=== PATIENT | male | born 1975 | race American Indian/Alaskan Native ===

== ENCOUNTER 2022-07-28 19:25 | Inpatient (IN) | payer OTHER, SELFPAY ==
[2022-07-28 19:31] VITALS: BP 156/98; PULSE 74; RESP 18; TEMP 37; O2SAT 98; BMI 28.9
[2022-07-28 19:52] LABS: Appearance Urine Cloudy; Color Urine Yellow; Glucose Urine UA Negative (Negative); Leukocyte Esterase Urine Negative (Negative); Nitrite Urine Negative (Negative); Specific Gravity - Urine 1.015 (1.005-1.025); Urine Blood Negative (Negative); Urine Ketones Negative (Negative); Urine Protein Negative (Neg-Trace)
[2022-07-28 19:57] LABS: MANUAL DIFF FLAG NO
[2022-07-28 20:02] LABS: Basophils Percent Auto 0.4 % (0-2); Eosinophils Absolute Auto 0.2 X10*3/uL (0.0-0.4); Eosinophils Percent Auto 2.2 % (0-4); Hematocrit 41.4 % (42.0-52.0); Hemoglobin 14.2 g/dl (14.0-18.0); Imm Gran Abs Auto 0.02 X10*3/uL (0.00-0.03); Imm Gran Pct Auto 0.2 % (0.0-0.4); Lymphocytes Absolute Auto 2.9 X10*3/uL (1.2-4.9); Lymphocytes Percent Auto 32.2 % (20-40); Mean Corpuscular HGB Conc 34.3 g/dl (31.0-36.0); Mean Corpuscular Hemoglobin 31.1 pg (27.0-33.0); Mean Corpuscular Volume 90.8 fL (80.0-98.0); Mean Platelet Volume 9.3 fL (9.4-12.4); Monocytes Absolute Auto 0.5 X10*3/uL (0.1-1.2); Monocytes Percent Auto 5.4 % (2-11); Neutrophils Absolute Auto 5.3 x10*3/uL (2.0-8.3); Neutrophils Percent Auto 59.6 % (45-73); Platelet Count 219 X10*3/uL (160-400); Red Blood Count 4.56 X10*6/uL (4.60-5.80); Red Cell Distribution Width 13.1 % (11.0-16.0)
[2022-07-28 20:04] LABS: Amphetamine Screen Urine Not Detected (Not Detect); Barbiturates, Urine Not Detected (Not Detect); Benzodiazepines Screen Urine Not Detected (Not Detect); Cannabinoid Screen Urine POSITIVE (Not Detect); Cocaine Screen Urine Not Detected (Not Detect); Fentanyl, urine Not Detected (Not Detect); Opiate Screen Urine Not Detected (Not Detect); Phencyclidine Screen Urine Not Detected (Not Detect)
[2022-07-28 20:05] LABS: COVID-19 Test Negative (Negative); IDNOW Serial# BCCEAD1C
[2022-07-28 20:22] LABS: Alanine Aminotransferase 40 U/L (0-40); Albumin Level 4.4 g/dL (3.5-5.0); Alkaline Phosphatase 71 U/L (39-117); Anion Gap 14 (12-20); Aspartate Amino Transferase 20 U/L (5-37); Bilirubin Total 0.4 mg/dL (0.0-1.0); Blood Urea Nitrogen 10 mg/dL (9-16); Calcium 9.4 mg/dL (8.4-10.2); Carbon Dioxide 25 mmol/L (22-29); Chloride 106 mmol/L (96-108); Creatinine Clr Calc Pharmacy 89.9; Estimated Glomerular Filt Rate > 60; Ethanol < 10 mg/dL; Glucose Random 107 mg/dL (60-115); Potassium 3.8 mmol/L (3.3-5.1); Sodium 141 mmol/L (135-145); Total Protein 6.9 g/dL (6.5-8.0)
--- NOTE | 2022-07-28 22:39 | ED.PSYCH ---
HPI - Psych General Chief Complaint: Psychiatric Symptoms Stated Complaint: SI Section 12 Time Seen by Provider: 07/28/22 19:51 Source: patient Mode of arrival: ambulatory Limitations: no limitations History of Present Illness HPI Narrative: 46-year-old male DID, PTSD, anxiety, depresison presents to the emergency via ambulance on a Section 12 from a behavioral health clinic or suicidal ideation without particular plan patient has been feeling this way for few days. Reports increasing life stressors as well as anxiety, depression. Patient tells me he misses his family. He reports he is currently enrolled in a partial hospitalization program on [facility] in [place] through [facility]. Reports this just is in enough Patient denies auditory, visual and tactile hallucinations. Denies drugs, alcohol tobacco. No medical complaints at this time. Related Data Home Medications Medication Instructions Recorded Confirmed buspirone 7.5 mg tablet 7.5 mg PO BID 07/28/22 07/28/22 duloxetine 30 mg capsule,delayed 30 mg PO QAM 07/28/22 07/28/22 release esomeprazole magnesium 20 mg 20 mg PO DAILY 07/28/22 07/28/22 capsule,delayed release prazosin 1 mg capsule 1 mg PO BEDTIME nightmares 07/28/22 07/28/22 Allergies Allergy/AdvReac Type Severity Reaction Status Date / Time acetaminophen [From NyQuil] Allergy Nausea and Verified 07/28/22 19:37 Vomiting dextromethorphan Allergy Nausea and Verified 07/28/22 19:37 [From NyQuil] Vomiting doxylamine [From NyQuil] Allergy Nausea and Verified 07/28/22 19:37 Vomiting Penicillins Allergy Difficulty Verified 07/28/22 19:37 Breathing pseudoephedrine [From NyQuil] Allergy Nausea and Verified 07/28/22 19:37 Vomiting Review of Systems Review of Systems: Constitutional : No Weight loss, No Fever, No Chills, No Fatigue, No Malaise ENT/Mouth : No sore throat, No Rhinorrhea Eyes: No Eye Pain, No Swelling, No Redness Cardiovascular : No Chest Pain, No SOB, No Dyspnea on Exertion, No Orthopnea, No Edema, No Palpitations Respiratory : No Cough, No Sputum, No Wheezing Gastrointestinal : No Nausea, No Vomiting, No Diarrhea, No Constipation, No abdominal Pain, No Hematochezia, No Melena Genitourinary : No Dysuria, No Urinary Frequency, No Hematuria, Musculoskeletal : No joint pain, No Myalgias, No Joint Swelling Skin : No Skin Lesions, No rash Neuro : No Weakness, No Numbness, No Dizziness, No Headache Psych : + Anxiety/Panic, + Depression, + SI and NO HI All other systems reviewed and are negative Yes all other systems are reviewed and are negative [facility] Past Medical History Attestation statement: The following information was validated with the patient. Source: old records reviewed and nursing notes reviewed Social History Social History Advance Directives: No Advance Directives Information Provided: Yes Physical Exam Vital Signs: Vital Signs: Last Vital Signs Temp 98.6 F 07/28/22 19:31 Pulse 74 07/28/22 19:31 Resp 18 07/28/22 19:31 BP 156/98 H 07/28/22 19:31 Pulse Ox 98 07/28/22 19:31 O2 Del Method Room Air 07/28/22 19:31 BMI result Body Mass Index 28.9 vss Appearance: Alert.? Oriented X3.? No acute distress.? Head: Normocephalic, atraumatic, no step-offs or deformities Eyes: Pupils equal, round and reactive to light.? CVS: Normal heart rate and rhythm.? Pulses normal.? Respiratory: No respiratory distress.? Breath sounds normal.? Abdomen: Soft and nontender.? Skin: Skin warm and dry.? Normal skin color.? Normal skin turgor.? Extremities: No lower extremity edema.? No calf ttp. 5/5 strength to bilateral upper and lower extremities Neuro: Oriented X 3.? No motor deficit.? No sensory deficit. CN 2-12 intact Course Reevaluation(s) Reevaluation #1: CBC with no acute findings. Chemistry without electrolyte abnormalities requiring intervention. Urine clean. Urine toxicology positive for marijuana. Negative ethanol. COVID negative. At this time patient will be placed into observation to allow more time for inpatient psychiatric placement At time observation was started patient common cooperative no acute distress will continue to monitor. Time: 22:42 Medical Decision Making Medical Decision Making [facility] Narrative: 2229 46-year-old male presents with suicidal ideation with no particular plan. Reports increased anxiety and depression due to increasing life stressors. Physical exam benign. Likely anxiety and depression. Unlikely metabolic disturbances Plan medical clearance evaluation by behavioral health team Differential Diagnosis Differential Diagnoses: The differential diagnosis associated with the presentation includes Likely anxiety and depression. Unlikely metabolic disturbances Admission/Observation Consideration of admission/observation: Escalation of care including admission/observation considered Inpatient psychiatric admission Consult Healthcare Provider Management of the patient was discussed with: Behavioral Health Provider Lab Data MDM Lab Attestation statement: I reviewed the patient's lab results. 07/28/22 19:48 07/28/22 19:48 Labs: Lab Results 07/28/22 07/28/22 07/28/22 Range/Units 19:42 19:42 19:42 WBC (4.8-10.8) X10*3/uL RBC (4.60-5.80) X10*6/uL Hgb (14.0-18.0) g/dl Hct (42.0-52.0) % MCV (80.0-98.0) fL MCH (27.0-33.0) pg MCHC (31.0-36.0) g/dl RDW (11.0-16.0) % Plt Count (160-400) X10*3/uL MPV (9.4-12.4) fL Immature Gran % (Auto) (0.0-0.4) % Neut % (Auto) (45-73) % Lymph % (Auto) (20-40) % Valley % (Auto) (2-11) % Eos % (Auto) (0-4) % Baso % (Auto) (0-2) % Lymph # (Auto) (1.2-4.9) X10*3/uL Valley # (Auto) (0.1-1.2) X10*3/uL Eos # (Auto) (0.0-0.4) X10*3/uL Baso # (Auto) (0.0-0.2) X10*3/uL Abs Immat Gran (auto) (0.00-0.03) X10*3/uL Absolute Neuts (auto) (2.0-8.3) x10*3/uL Absolute Nucleated RBC (0.0-0.012) X10*3/uL Nucleated RBC % (auto) (0.0-0.2) /100WBC Sodium (135-145) mmol/L Potassium (3.3-5.1) mmol/L Chloride (96-108) mmol/L Carbon Dioxide (22-29) mmol/L Anion Gap (12-20) BUN (9-16) mg/dL Creatinine (0.5-1.4) mg/dL Estim Creat Clear Calc Estimated GFR Random Glucose (60-115) mg/dL Calcium (8.4-10.2) mg/dL Total Bilirubin (0.0-1.0) mg/dL AST (5-37) U/L ALT (0-40) U/L Alkaline Phosphatase (39-117) U/L Total Protein (6.5-8.0) g/dL Albumin (3.5-5.0) g/dL Urine Color Yellow Urine Appearance Cloudy Urine pH 8.0 (5.0-9.0) Ur Specific [place] 1.015 (1.005-1.025) Urine Protein Negative (Neg-Trace) mg/dL Urine Glucose (UA) Negative (Negative) mg/dL Urine Ketones Negative (Negative) mg/dL Urine Blood Negative (Negative) Urine Nitrite Negative (Negative) Ur Leukocyte Esterase Negative (Negative) Urine Opiates Screen Not Detected (Not Detect) Urine Fentanyl Screen Not Detected (Not Detect) Ur Barbiturates Screen Not Detected (Not Detect) Ur Phencyclidine Scrn Not Detected (Not Detect) Ur Amphetamines Screen Not Detected (Not Detect) U Benzodiazepines Scrn Not Detected (Not Detect) Urine Cocaine Screen Not Detected (Not Detect) U Marijuana (THC) Screen POSITIVE H (Not Detect) Ethyl Alcohol mg/dL COVID-19 (JAVIER) Negative (Negative) COVID-19 Clin Com See Note 07/28/22 07/28/22 Range/Units 19:48 19:48 WBC 9.0 (4.8-10.8) X10*3/uL RBC 4.56 L (4.60-5.80) X10*6/uL Hgb 14.2 (14.0-18.0) g/dl Hct 41.4 L (42.0-52.0) % MCV 90.8 (80.0-98.0) fL MCH 31.1 (27.0-33.0) pg MCHC 34.3 (31.0-36.0) g/dl RDW 13.1 (11.0-16.0) % Plt Count 219 (160-400) X10*3/uL MPV 9.3 L (9.4-12.4) fL Immature Gran % (Auto) 0.2 (0.0-0.4) % Neut % (Auto) 59.6 (45-73) % Lymph % (Auto) 32.2 (20-40) % Valley % (Auto) 5.4 (2-11) % Eos % (Auto) 2.2 (0-4) % Baso % (Auto) 0.4 (0-2) % Lymph # (Auto) 2.9 (1.2-4.9) X10*3/uL Valley # (Auto) 0.5 (0.1-1.2) X10*3/uL Eos # (Auto) 0.2 (0.0-0.4) X10*3/uL Baso # (Auto) 0.0 (0.0-0.2) X10*3/uL Abs Immat Gran (auto) 0.02 (0.00-0.03) X10*3/uL Absolute Neuts (auto) 5.3 (2.0-8.3) x10*3/uL Absolute Nucleated RBC 0.000 (0.0-0.012) X10*3/uL Nucleated RBC % (auto) 0.0 (0.0-0.2) /100WBC Sodium 141 (135-145) mmol/L Potassium 3.8 (3.3-5.1) mmol/L Chloride 106 (96-108) mmol/L Carbon Dioxide 25 (22-29) mmol/L Anion Gap 14 (12-20) BUN 10 (9-16) mg/dL Creatinine 1.12 (0.5-1.4) mg/dL Estim Creat Clear Calc 89.9 Estimated GFR > 60 Random Glucose 107 (60-115) mg/dL Calcium 9.4 (8.4-10.2) mg/dL Total Bilirubin 0.4 (0.0-1.0) mg/dL AST 20 (5-37) U/L ALT 40 (0-40) U/L Alkaline Phosphatase 71 (39-117) U/L Total Protein 6.9 (6.5-8.0) g/dL Albumin 4.4 (3.5-5.0) g/dL Urine Color Urine Appearance Urine pH (5.0-9.0) Ur Specific [place] (1.005-1.025) Urine Protein (Neg-Trace) mg/dL Urine Glucose (UA) (Negative) mg/dL Urine Ketones (Negative) mg/dL Urine Blood (Negative) Urine Nitrite (Negative) Ur Leukocyte Esterase (Negative) Urine Opiates Screen (Not Detect) Urine Fentanyl Screen (Not Detect) Ur Barbiturates Screen (Not Detect) Ur Phencyclidine Scrn (Not Detect) Ur Amphetamines Screen (Not Detect) U Benzodiazepines Scrn (Not Detect) Urine Cocaine Screen (Not Detect) U Marijuana (THC) Screen (Not Detect) Ethyl Alcohol < 10 mg/dL COVID-19 (JAVIER) (Negative) COVID-19 Clin Com External Record Review External record reviewed: Inpatient record, Office record, Outpatient record, Prior outpatient labs, Prior outpatient radiology, Primary care record and Outside ED record Core Measures AMI core measures followed: Yes Measure exclusions: not indicated Critical Care Time Critical Care Time Critical Care Time: No Discharge Plan Discharge Clinical Impression: Depression, Acute anxiety, Suicidal ideation Patient Disposition: Still a Patient Prescriptions: No Action prazosin 1 mg capsule 1 mg PO BEDTIME buspirone 7.5 mg tablet 7.5 mg PO BID esomeprazole magnesium 20 mg capsule,delayed release(DR/EC) 20 mg PO DAILY duloxetine 30 mg capsule,delayed release(DR/EC) 30 mg PO QAM
[2022-07-28] MEDS: diphenhydrAMINE HCL 25 MG CAPSULE 50 MG PO (23:01)
[2022-07-29] MEDS: Omeprazole 20 MG CAPSULE.DR PO (05:20)
--- NOTE | 2022-07-29 05:26 | PC.NURSE ---
Patient slept through the night, no distress observed/reported, Benadryl 50 mg po at 2301 with + effect, medication compliant, disposition per [facility] is section 12 inpatient bed search, thought content paranoid, behavior non concerning, VSS, will continue to monitor.
[2022-07-29 06:30] VITALS: BP 143/86; PULSE 77; RESP 17; TEMP 36.8; O2SAT 97
[2022-07-29] MEDS: busPIRone HCl 5 MG TABLET 7.5 MG PO ×2 (08:27→21:19)
[2022-07-29] MEDS: DULoxetine HCl 30 MG CAPSULE.DR PO (08:27)
[2022-07-29 14:20] VITALS: BP 141/85; PULSE 77; RESP 17; TEMP 37.3; O2SAT 98
--- NOTE | 2022-07-29 14:25 | PC.NURSE ---
Nurse to Nurse given to M3 nurse Ashely RN and assistant director of nursing Carlita
[2022-07-29 16:00] VITALS: BP 157/93; PULSE 81; RESP 18; TEMP 36.6; O2SAT 97
[2022-07-29 18:37] VITALS: BMI 28.1
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
[2022-07-29] MEDS: traZODone HCL 50 MG TABLET PO (21:19)
[2022-07-29] MEDS: Prazosin HCL 1 MG CAPSULE PO (21:19)
[2022-07-29 21:20] VITALS: BP 133/97; PULSE 97; RESP 18; TEMP 36.7; O2SAT 98
[2022-07-30 07:00] VITALS: BMI 28.1
[2022-07-30 08:27] VITALS: BP 178/107; PULSE 108; RESP 18; TEMP 36.4; O2SAT 96
[2022-07-30] MEDS: DULoxetine HCl 30 MG CAPSULE.DR PO (08:28)
[2022-07-30] MEDS: busPIRone HCl 5 MG TABLET 7.5 MG PO (08:29)
[2022-07-30] MEDS: Omeprazole 20 MG CAPSULE.DR PO (08:30)
[2022-07-30 09:04] LABS: Estimated Average Glucose 111 mg/dL; Hemoglobin A1C 148.8862 umol/L; Hemoglobin A1c % 5.5 %
[2022-07-30 09:20] LABS: Alanine Aminotransferase 38 U/L (0-40); Albumin Level 4.4 g/dL (3.5-5.0); Alkaline Phosphatase 72 U/L (39-117); Anion Gap 15 (12-20); Aspartate Amino Transferase 19 U/L (5-37); Bilirubin Total 0.4 mg/dL (0.0-1.0); Blood Urea Nitrogen 13 mg/dL (9-16); Calcium 9.3 mg/dL (8.4-10.2); Carbon Dioxide 22 mmol/L (22-29); Chloride 107 mmol/L (96-108); Cholesterol 256 mg/dL; Creatinine Clr Calc Pharmacy 99.5; Estimated Glomerular Filt Rate > 60; Glucose Fasting 113 mg/dL (60-99); HDL Cholesterol 33 mg/dL; LDL Cholesterol Calculated 186 mg/dl; Potassium 4.1 mmol/L (3.3-5.1); Sodium 140 mmol/L (135-145); Total Protein 7.1 g/dL (6.5-8.0); Triglycerides 189 mg/dL
[2022-07-30 09:49] LABS: Folate 10.7 ng/mL (> or = 4.0); Thyroid Stimulating Hormone 0.96 uIU/mL (0.32-4.0); Vitamin B12 725 pg/mL (200-900)
[2022-07-30 16:05] VITALS: BP 140/94; PULSE 100; O2SAT 97
[2022-07-30] MEDS: Prazosin HCL 1 MG CAPSULE PO (16:12)
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
[2022-07-30 18:00] VITALS: BP 153/99; PULSE 97; RESP 18; TEMP 36.7; O2SAT 98
[2022-07-30] MEDS: Prazosin HCL 1 MG CAPSULE 2 MG PO (21:24)
--- NOTE | 2022-07-31 05:55 | PC.NURSE ---
Anatoly was noted to be awake until late in the evening. she was pleasant and cooperative upon approach. no behavioral issues noted however he was noted to be hyper-verbal and grandiose. no symptoms of disassociation noted.
[2022-07-31 08:00] VITALS: BP 139/83; PULSE 89; TEMP 36.7; O2SAT 97
[2022-07-31] MEDS: Omeprazole 20 MG CAPSULE.DR PO (09:34)
[2022-07-31] MEDS: DULoxetine HCl 30 MG CAPSULE.DR PO (09:35)
[2022-07-31] MEDS: Prazosin HCL 1 MG CAPSULE PO ×2 (09:35→15:18)
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
[2022-07-31 15:00] VITALS: BP 147/77; PULSE 97; RESP 18; TEMP 36.6; O2SAT 98
== END 2022-07-31 18:06 | disposition home or self-care (01) | DRG 754 ==
LOC: HO.ED 22:50 → HO.PADLT16 07-29 15:24
PROVIDERS: Social Worker; Student in an Organized Health Care Education/Training Program; Admitting Provider Psychiatry & Neurology Psychiatry; Emergency Provider Internal Medicine; Visit Provider Psychiatry & Neurology Psychiatry
DX: F32.A Depression, unspecified (principal); R45.851 Suicidal ideations; F43.12 Post-traumatic stress disorder, chronic; Z20.822 Contact with and (suspected) exposure to COVID-19; Z79.899 Other long term (current) drug therapy; Z87.891 Personal history of nicotine dependence; Z62.810 Personal history of physical and sexual abuse in childhood; Z88.0 Allergy status to penicillin; Z88.6 Allergy status to analgesic agent; Z88.8 Allergy status to other drugs, medicaments and biological substances
CPT/HCPCS: 36415; 80053; 80061; 80307; 81003; 82077; 82607; 82746; 83036; 84443; 85025; 87635; 99285; S9485

== ENCOUNTER 2022-09-15 13:00 | Outpatient (RCR) | payer OTHER, SELFPAY ==
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
[2022-08-27 12:09] VITALS: BP 138/84; PULSE 68; TEMP 37.1
[2022-08-27 12:20] VITALS: BMI 30.2
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
--- NOTE | 2022-08-28 14:19 | HO.PHP ---
The clients case was reviewed and opened in treatment team.
--- NOTE | 2022-09-02 15:49 | HO.PHP ---
The client called out because he has an upset stomach.
--- NOTE | 2022-09-03 11:44 | P.PNPSP_ITS ---
Subjective Subjective Date of Service: 09/03/22 Reason For Visit: PTSD,depression,anxiety,trauma Medical Problems Affecting Mental Status: No Interim History: Continues with anxious, dysphoric mood. States ?I am hanging in there ?. States that he feels safe, no active SI. Some improved sleep with increased dose prazosin, however still waking up, experiencing flashbacks, states they are not as sharp. Medication Compliance: Yes Side effects from medications: No Attending Groups: Yes Review of Systems Acute medical concerns: No Medical Review of Systems: unchanged Review of Systems Review of Systems Continues with ongoing GI issues, sees a specialist. Yes all other systems are reviewed and are negative Constitutional: Reports no additional constitutional complaints Mental Status Exam Mental Status Exam Narrative: NAD Patient Appearance: Appropriate Patient Orientation: Person, Place, Time and Situation Level of Consciousness: Appropriate Patient Behavior: Appropriate, Cooperative and Good Eye Contact Mood Description: Depressed and Anxious Affect Description: Depressed (improving) and Anxious (less) Patient Cognition Impaired: No Ability to Follow Directions: Excellent Speech Pattern: Clear and Coherent Memory Description: Intact Delusions: Not Present Perceptual Disturbances: Depersonalization Thought Process: Intact Thought Content: positive for Intact and positive for Obsessional Thoughts (Intrusive thoughts at times, trauma related.) Depressive Symptoms: Increased Anxiety, Increased Irritability, Difficulty Sleeping, Loss of Int. in Activity, Feelings of Worthlessness, Unhappiness, Increased Fatigue and Difficulty Concentrating Judgement: Fair Diagnostics Vital Signs (24Hr): BMI result Body Mass Index 30.2 Assessment & Plan Assessment & Plan (1) PTSD (post-traumatic stress disorder): Status: Acute Code(s): F43.10 - Post-traumatic stress disorder, unspecified Assessment and Plan: Continues with anxious, dysphoric mood. States ?I am hanging in there ?. Continues with increased duloxetine. Finding groups helpful. States that he feels safe, no active SI reported. Some improved sleep with increased dose prazosin, however still waking up, experiencing flashbacks, states they are not as sharp. Finding the daytime prazosin helpful. Has some intrusive thoughts at times. We discussed possibility of adding low-dose risperidone or quetiapine, in order to help with intrusive thoughts, as well as improve sleep. Patient will read about the medications. Also discussed possibility of adding prn trazodone, if intrusive thoughts improved, but continues with difficulty falling asleep and staying asleep. Patient was using cannabis at home to help with anxiety and sleep. Currently not using any, as he wants to give psychiatric medications a chance to work without another substance added. Denies any withdrawals or cravings, states that he used it mainly to help at night. States it is not currently a concern. (2) Major depressive disorder, recurrent severe without psychotic features: Status: Acute Code(s): F33.2 - Major depressive disorder, recurrent severe without psychotic features (3) ANNETTE (generalized anxiety disorder): Status: Acute Code(s): F41.1 - Generalized anxiety disorder (4) Dissociative disorder: Status: Acute Code(s): F44.9 - Dissociative and conversion disorder, unspecified Plan 1. Continue with current [facility] plan of care 2. Continue with current medication regimen. 3. Follow-up as per protocol. Patient educated on: diagnosis, medication risk/benefits and therapeutic strategies Informed Consent: understands Reason for contiued partial hosp. stay Substantial Risk for: harm to self, inability to function and rapid decompensa tion Certification I certify that partial hospital treatment is medically necessary due to the symptoms and problems resulting from the patient's mental illness and the failure to treat the patient at the partial hospital level of care would likely result in the patient requiring inpatient psychiatric care which could not be prevented at a less intensive level of care. Total time managing care of this patient today __20__ minutes. Discharge Plan Discharge Attending provider: Robert Hernandez Medications: No Action esomeprazole magnesium 20 mg capsule,delayed release(DR/EC) 20 mg PO DAILY prazosin 1 mg Capsule 3 mg PO BEDTIME 30 Days Qty: 90 0RF Protocol: Hold for SBP< HOLD for SBP < : 90 prazosin 1 mg Capsule 1 mg PO BID 30 Days Qty: 60 0RF Protocol: Hold for SBP< HOLD for SBP < : 90 Rx Instructions: take at 0900 and 1500 duloxetine 30 mg capsule,delayed release(DR/EC) 30 mg PO QAM 30 Days Qty: 30 0RF
--- NOTE | 2022-09-04 13:49 | HO.PHP ---
I met with the client after he stated that he is not doing well and wants to leave for the day. He explained that he feels very angry and felt invalidated by others during a conversation that happened during the lunch time. He presents as angry and agitated. 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 He also asked for a referral to [facility] for their PTSD/trauma program.
--- NOTE | 2022-09-08 09:20 | HO.PHP ---
I called the client after he called and cancelled for today. He states that he doesn't feel well and continues to be very anxious. We discussed his need for a program that focuses on trauma and talked about [facility] trauma focused [facility]. We discussed my calling to them to inquire about making a referral and if not [facility] than to a full DBT program. The client approved of the idea and wants to discuss this with his . We agreed on a plan for me to gather information and call him back this afternoon.
--- NOTE | 2022-09-08 09:56 | HO.PHP ---
I called [facility] and left a message re need to make a referral to their PHP program.
--- NOTE | 2022-09-10 13:14 | HO.PHPPROGNO ---
Subjective Subjective Date of Service: 09/10/22 Reason For Visit: PTSD,depression,anxiety,trauma Medical Problems Affecting Mental Status: No Interim History: Continues with depression, states that he feels safe, and that he is not in crisis. Complains of chronic abdominal pain, feels tired, body aches, brain fog, cognitive issues. States issues have been ongoing for 5 years. Complains of anhedonia, decreased sleep, 4 to 6 hours per night. No SI reported. Medication Compliance: Yes Side effects from medications: No Attending Groups: Yes Review of Systems Acute medical concerns: No Medical Review of Systems: unchanged Review of Systems Review of Systems Yes all other systems are reviewed and are negative Constitutional: Reports no additional constitutional complaints Mental Status Exam Mental Status Exam Narrative: NAD Patient Appearance: Appropriate Patient Orientation: Person, Place, Time and Situation Level of Consciousness: Appropriate Patient Behavior: Appropriate, Cooperative and Good Eye Contact Mood Description: Depressed and Anxious Affect Description: Depressed and Anxious Patient Cognition Impaired: No Ability to Follow Directions: Excellent Speech Pattern: Clear and Coherent Memory Description: Intact Delusions: Not Present Perceptual Disturbances: Depersonalization (reports dissociative episodes) Thought Process: Intact Thought Content: positive for Intact and positive for Obsessional Thoughts (Intrusive thoughts at times, trauma related.) Depressive Symptoms: Increased Anxiety, Increased Irritability, Difficulty Sleeping, Loss of Int. in Activity, Unhappiness, Increased Fatigue and Difficulty Concentrating Judgement: Fair Diagnostics Vital Signs (24Hr): BMI result Body Mass Index 30.2 Assessment & Plan Assessment & Plan (1) Major depressive disorder, recurrent severe without psychotic features: Status: Acute Code(s): F33.2 - Major depressive disorder, recurrent severe without psychotic features Assessment and Plan: Continues with depression. States that his cognitive issues are bothering him, he has been considering a neurology visit. His symptoms are ongoing past 5 years. No SI, no safety concerns. Poor sleep. Patient utilizes p.r.n. melatonin occasionally, would like something else. We discussed trial of trazodone, as he had taken is inpatient in found helpful. Patient met with nurse practitioner student Lori Moralez, and completed a MOCA assessment with her. Score of 24. Score is indicative of mild decline in cognitive function. However, score is questionable as he did not actively participate in several portions of the test. Portions that were completed demonstrated a decline in maintaining attention and concentration. He did have some difficulty with working memory when attempting to complete the digital span backwards. He appeared to struggle at times with difficulty performing the delayed recall portion. Assessment demonstrated orientation, abstraction, language to be intact. (2) PTSD (post-traumatic stress disorder): Status: Acute Code(s): F43.10 - Post-traumatic stress disorder, unspecified Assessment and Plan: Finding increase prazosin, daytime prazosin helpful in managing PTSD symptoms. (3) ANNETTE (generalized anxiety disorder): Status: Acute Code(s): F41.1 - Generalized anxiety disorder Assessment and Plan: Continues with anxiety. Plan 1. Continue with current [facility] plan of care. 2. Recommended patient contact primary care provider or insurance regarding referral for neurology consultation. 3. Start trazodone 50 mg at bedtime p.r.n. for sleep. 4. Follow-up as per protocol. Patient educated on: diagnosis, medication risk/benefits and therapeutic strategies Informed Consent: understands Reason for contiued partial hosp. stay Substantial Risk for: harm to self, inability to function, rapid decompensation and med/psych decompensation Certification I certify that partial hospital treatment is medically necessary due to the symptoms and problems resulting from the patient's mental illness and the failure to treat the patient at the partial hospital level of care would likely result in the patient requiring inpatient psychiatric care which could not be prevented at a less intensive level of care. Total time managing care of this patient today __20__ minutes. Discharge Plan Discharge Attending provider: Robert Hernandez Medications: New prazosin 5 mg capsule 5 mg PO BEDTIME Qty: 30 0RF prazosin 1 mg capsule 1 mg PO BID Qty: 60 0RF Rx Instructions: Take one in am, and one in afternoon duloxetine 60 mg capsule,delayed release(DR/EC) 60 mg PO DAILY Qty: 30 0RF Rx Instructions: take in morning duloxetine 30 mg capsule,delayed release(DR/EC) 30 mg PO DAILY Qty: 30 0RF Rx Instructions: take in evening trazodone 50 mg tablet 50 mg PO BEDTIME PRN (Reason: insomnia) Qty: 14 0RF Discontinued prazosin 1 mg Capsule 3 mg PO BEDTIME 30 Days Qty: 90 0RF Protocol: Hold for SBP< HOLD for SBP < : 90 prazosin 1 mg Capsule 1 mg PO BID 30 Days Qty: 60 0RF Protocol: Hold for SBP< HOLD for SBP < : 90 Rx Instructions: take at 0900 and 1500 duloxetine 30 mg capsule,delayed release(DR/EC) 30 mg PO QAM 30 Days Qty: 30 0RF No Action esomeprazole magnesium 20 mg capsule,delayed release(DR/EC) 20 mg PO DAILY
--- NOTE | 2022-09-15 12:22 | HO.PHPPROGNO ---
Subjective Subjective Date of Service: 09/15/22 Reason For Visit: PTSD,depression,anxiety,trauma Medical Problems Affecting Mental Status: No Interim History: Reports that he feels safe, No SI at this time. Some emotional, smith about leaving [facility] today. States It's time for me to go back to work, and fit back into society Current meds working well, no concerns. Has initial oupatient provider/ prescriber in two days, and on wait list for therapist. Medication Compliance: Yes Side effects from medications: No Attending Groups: Yes Review of Systems Acute medical concerns: No Medical Review of Systems: unchanged Review of Systems Review of Systems Yes all other systems are reviewed and are negative Constitutional: Reports no additional constitutional complaints Mental Status Exam Mental Status Exam Narrative: NAD Patient Appearance: Appropriate Patient Orientation: Person, Place, Time and Situation Level of Consciousness: Appropriate Patient Behavior: Appropriate, Cooperative and Good Eye Contact Mood Description: Anxious Affect Description: Appropriate and Anxious Patient Cognition Impaired: No Ability to Follow Directions: Excellent Speech Pattern: Clear and Coherent Memory Description: Intact Hallucinations: None Delusions: Not Present Thought Process: Intact Thought Content: positive for Intact and positive for Obsessional Thoughts (Intrusive thoughts at times, trauma related.) Depressive Symptoms: Increased Anxiety Judgement: Good Diagnostics Vital Signs (24Hr): BMI result Body Mass Index 30.2 Assessment & Plan Assessment & Plan (1) Major depressive disorder, recurrent severe without psychotic features: Status: Acute Code(s): F33.2 - Major depressive disorder, recurrent severe without psychotic features Assessment and Plan: Patient states PHP has been helpful. Continues with anxiety regarding returning to work, fitting back into the society . Looking forward to easing back into work on a part-time status, with the summer months being slower at his place of employment. Adherent with medications, denies any side effects. Satisfied with current medication regimen, no changes requested. No SI, reports feeling safe upon inquiry. Did not report any new or worsening PTSD symptoms. Finding prazosin helpful with sx management. Has new provider appt later this week, looking forward to this. Discussed making a list of his concerns/questions to take to appt, as well as current medication list, to help focus on his concerns, as he reports he can be forgetful at times. (2) PTSD (post-traumatic stress disorder): Status: Acute Code(s): F43.10 - Post-traumatic stress disorder, unspecified (3) ANNETTE (generalized anxiety disorder): Status: Acute Code(s): F41.1 - Generalized anxiety disorder (4) Dissociative disorder: Status: Acute Code(s): F44.9 - Dissociative and conversion disorder, unspecified Assessment and Plan: No sx of DID reported or observed. Plan 1. Patient appears stable for discharge from [facility] at this time. 2. Patient to follow-up with outpatient providers going forward. Patient educated on: diagnosis, medication risk/benefits and therapeutic strategies Reason for contiued partial hosp. stay Substantial Risk for: stable for discharge Certification I certify that partial hospital treatment is medically necessary due to the symptoms and problems resulting from the patient's mental illness and the failure to treat the patient at the partial hospital level of care would likely result in the patient requiring inpatient psychiatric care which could not be prevented at a less intensive level of care. Total time managing care of this patient today ___20_ minutes. Discharge Plan Discharge Attending provider: Robert Hernandez Additional Instructions: Jannette Pichardo NP 09/17/22 [facility], Rosalinda PAULSON 09/21/22 Medications: New prazosin 5 mg capsule 5 mg PO BEDTIME Qty: 30 0RF prazosin 1 mg capsule 1 mg PO BID Qty: 60 0RF Rx Instructions: Take one in am, and one in afternoon duloxetine 60 mg capsule,delayed release(DR/EC) 60 mg PO DAILY Qty: 30 0RF Rx Instructions: take in morning duloxetine 30 mg capsule,delayed release(DR/EC) 30 mg PO DAILY Qty: 30 0RF Rx Instructions: take in evening trazodone 50 mg tablet 50 mg PO BEDTIME PRN (Reason: insomnia) Qty: 14 0RF Discontinued prazosin 1 mg Capsule 3 mg PO BEDTIME 30 Days Qty: 90 0RF Protocol: Hold for SBP< HOLD for SBP < : 90 prazosin 1 mg Capsule 1 mg PO BID 30 Days Qty: 60 0RF Protocol: Hold for SBP< HOLD for SBP < : 90 Rx Instructions: take at 0900 and 1500 duloxetine 30 mg capsule,delayed release(DR/EC) 30 mg PO QAM 30 Days Qty: 30 0RF No Action esomeprazole magnesium 20 mg capsule,delayed release(DR/EC) 20 mg PO DAILY Stand Alone Forms: Patient Portal Discharge page Patient Education: Depression (DC), Post Traumatic Stress Disorder (DC)
== END 2022-09-15 23:59 | disposition home or self-care (01) ==
LOC: HO.PHPA 13:00
PROVIDERS: Visit Provider Psychiatry & Neurology Psychiatry
DX: F33.2 Major depressive disorder, recurrent severe without psychotic features (principal); F43.10 Post-traumatic stress disorder, unspecified; F41.1 Generalized anxiety disorder; F44.9 Dissociative and conversion disorder, unspecified; Z79.899 Other long term (current) drug therapy
CPT/HCPCS: 90791; 90853